=== PATIENT | male | born 1940 | race Caucasian/White ===

== ENCOUNTER 2018-04-29 10:15 | Observation (INO) | payer MEDICARE ==
[~2018-04-29] VITALS: Ht 177.8 cm; Wt 95.0 kg
[~2018-04-29 10:15] MED LIST: ALPR-624 PO; ASPI-1009 PO; CHOL100012 PO; CITA-278 PO; CLOP75TA35 PO; COR3.125T PO; CYAN1TAB41 PO; FIOCOC; HYDR-4353 PO; NITR0.4T48 SL; OMEG1CAP PO; RANO500T2 PO; ROSU20TA PO; [UNRECOGNIZED DRUG - CODE] PO
[2018-04-29 11:06] LABS: BASOPHILS # (AUTO) 0.1 X10'3 (0-0.2); BASOPHILS % (AUTO) 0.6 % (0-1); EOSINOPHILS # (AUTO) 0.1 X10'3 (0-0.9); EOSINOPHILS % (AUTO) 0.7 % (0-6); HEMATOCRIT 40.6 % (42.0-52.0); HEMOGLOBIN 13.9 g/dl (14.0-17.9); LYMPHOCYTES # (AUTO) 0.9 X10'3 (1.1-4.8); MEAN CORPUSCULAR HEMOGLOBIN 33.1 PG (27.0-31.0); MEAN CORPUSCULAR HGB CONC 34.2 % (33.0-36.5); MEAN CORPUSCULAR VOLUME 96.7 FL (78-98); MEAN PLATELET VOLUME 8.1 FL (7.4-10.4); MONOCYTES # (AUTO) 0.4 X10'3 (0-0.9); MONOCYTES % (AUTO) 4.9 % (2-12); NEUTROPHILS # (AUTO) 6.9 X10'3 (1.8-7.7); NEUTROPHILS % (AUTO) 82.8 % (42-75); PLATELET COUNT 202 X10'3 (140-440); RED CELL DISTRIBUTION WIDTH 12.9 % (11.5-14.5); WHITE BLOOD COUNT 8.3 X10'3 (4.5-11.0)
[2018-04-29 11:23] LABS: ALANINE AMINOTRANSFERASE 21 U/L (12-78); ALBUMIN 3.6 G/DL (3.4-5.0); ALBUMIN/GLOBULIN RATIO 1.2 (1.1-1.5); ALKALINE PHOSPHATASE 86 IU/L (46-116); ANION GAP 8 (8-16); ASPARTATE AMINO TRANSFERASE 22 U/L (10-37); BILIRUBIN,TOTAL 0.5 MG/DL (0.1-1.0); BLOOD UREA NITROGEN 13 MG/DL (7-18); BUN/CREATININE RATIO 13.1 (5.4-32.0); CALCIUM 8.6 MG/DL (8.5-10.1); CHLORIDE 106 MMOL/L (99-107); CREATININE 0.99 MG/DL (0.60-1.10); GLUCOSE 106 MG/DL (70-104); POTASSIUM 3.7 MMOL/L (3.5-5.1); SODIUM 140 MMOL/L (135-145); TOTAL CARBON DIOXIDE 25.6 MMOL/L (24-32); TOTAL PROTEIN 6.7 G/DL (6.4-8.2); eGFR 73 ML/MIN
[2018-04-29 11:41] LABS: INR 1.1 INR; PARTIAL THROMBOPLASTIN TIME 27 SECONDS (22-32); PROTHROMBIN TIME 10.9 SECONDS (9.0-12.0)
[2018-04-29] MEDS ORDERED: acetaminophen 325mg tablet PO PRN ×2 (12:40)
[2018-04-29] MEDS ORDERED: magnesium hydroxide 30ml (MOM) UD suspension PO PRN (12:40)
[2018-04-29] MEDS ORDERED: ondansetron/PF 4mg/2ml inj IV PRN (12:40)
[2018-04-29] MEDS ORDERED: HYDROcodone/acetaminophen 5mg/325mg tablet PO PRN (12:40)
[2018-04-29] MEDS ORDERED: mag hydrox/Alum hydrox/simeth 30ml oral suspension PO PRN (12:40)
[2018-04-29] MEDS ORDERED: HYDROcodone/acetaminophen 10/325mg tab PO PRN (12:40)
[2018-04-29] MEDS ORDERED: CLOP75TA15 PO (13:00)
[2018-04-29] MEDS ORDERED: CARV6.253 PO (13:00)
[2018-04-29] MEDS ORDERED: METO25TA6 PO (13:02)
[2018-04-29] MEDS ORDERED: ALPRAZolam 0.5mg tablet PO PRN (13:20)
[2018-04-29] MEDS ORDERED: ISOS30TA6 PO (14:24)
[2018-04-29] MEDS ORDERED: OMEP40CA37 PO (14:24)
[2018-04-29] MEDS ORDERED: GABA300T25 PO (14:36)
[2018-04-29] MEDS ORDERED: NIAC500T7 PO (14:36)
[2018-04-29] MEDS ORDERED: MULT1CAP44 PO (14:36)
[2018-04-29] MEDS ORDERED: MAGN400C PO (14:36)
[2018-04-29] MEDS ORDERED: ACET-2119 PO (14:36)
[2018-04-29] MEDS ORDERED: TEMA15CA5 PO (14:36)
[2018-04-29] MEDS ORDERED: LACT10SO PO (14:36)
[2018-04-29] MEDS ORDERED: EVOL140S SUBCUT (14:36)
[2018-04-29] MEDS ORDERED: HYDR-4383 PO (14:45)
[2018-04-29] MEDS ORDERED: ROPI2TAB4 PO (14:45)
[2018-04-29 17:30] VITALS: BP 109/64
[2018-04-29] MEDS: ranolazine 500mg SR tablet (Q12H) PO SCH (19:49)
[2018-04-29] MEDS: ROPINIRole 1mg tablet PO PRN (19:55)
[2018-04-29] MEDS: metoprolol tartrate 25mg tablet PO SCH (19:57)
[2018-04-29] MEDS ORDERED: omega-3 acid ethyl esters 1GM capsule PO SCH (20:00)
[2018-04-29] MEDS ORDERED: temazepam 15mg capsule PO PRN (21:00)
[2018-04-29 23:00] VITALS: BP 131/56
[2018-04-30] VITALS (12 sets, daily range): BP systolic 135–183; BP diastolic 58–108
[2018-04-30 05:06] LABS: BASOPHILS % (AUTO) 0.5 % (0-1); EOSINOPHILS # (AUTO) 0.3 X10'3 (0-0.9); HEMATOCRIT 39.4 % (42.0-52.0); HEMOGLOBIN 13.3 g/dl (14.0-17.9); LYMPHOCYTES # (AUTO) 1.8 X10'3 (1.1-4.8); LYMPHOCYTES % (AUTO) 31.2 % (21-51); MEAN CORPUSCULAR HEMOGLOBIN 32.9 PG (27.0-31.0); MEAN CORPUSCULAR HGB CONC 33.7 % (33.0-36.5); MEAN CORPUSCULAR VOLUME 97.5 FL (78-98); MEAN PLATELET VOLUME 8.4 FL (7.4-10.4); MONOCYTES # (AUTO) 0.6 X10'3 (0-0.9); MONOCYTES % (AUTO) 9.5 % (2-12); NEUTROPHILS # (AUTO) 3.1 X10'3 (1.8-7.7); NEUTROPHILS % (AUTO) 52.8 % (42-75); PLATELET COUNT 164 X10'3 (140-440); RED BLOOD COUNT 4.05 X10'6 (4.70-6.10); RED CELL DISTRIBUTION WIDTH 13.5 % (11.5-14.5); WHITE BLOOD COUNT 5.8 X10'3 (4.5-11.0)
[2018-04-30 05:29] LABS: ALBUMIN 3.1 G/DL (3.4-5.0); ANION GAP 8 (8-16); BLOOD UREA NITROGEN 16 MG/DL (7-18); BUN/CREATININE RATIO 19.3 (5.4-32.0); CALCIUM 8.5 MG/DL (8.5-10.1); CHLORIDE 107 MMOL/L (99-107); CHOL/HDL RATIO 2.4 (0.00-4.99); CHOLESTEROL 88 MG/DL (0-200); CREATININE 0.83 MG/DL (0.60-1.10); GLUCOSE 103 MG/DL (70-104); HDL CHOLESTEROL 37 MG/DL (35-60); LDL CHOLESTEROL 33 MG/DL (50-100); POTASSIUM 3.5 MMOL/L (3.5-5.1); SODIUM 142 MMOL/L (135-145); TOTAL CARBON DIOXIDE 27.1 MMOL/L (24-32); TRIGLYCERIDES 207 MG/DL (20-135); eGFR 90 ML/MIN
[2018-04-30] MEDS ORDERED: normal saline 1000ml 1,000 ML IV SCH (07:00)
[2018-04-30] MEDS: ranolazine 500mg SR tablet (Q12H) PO SCH ×2 (07:12→20:07)
[2018-04-30] MEDS: aspirin 81mg tablet.DR PO SCH (07:12)
[2018-04-30] MEDS: metoprolol tartrate 25mg tablet PO SCH ×2 (07:12→22:55)
[2018-04-30] MEDS: ROPINIRole 1mg tablet PO PRN ×4 (07:12→22:43)
[2018-04-30] MEDS: citalopram 20mg tablet PO SCH (07:12)
[2018-04-30] MEDS: clopidogrel 75mg tablet PO SCH (07:15)
[2018-04-30] MEDS ORDERED: midazolam 2 mg/2 ml injection ONE ×2 (07:31→08:31)
[2018-04-30] MEDS ORDERED: fentaNYL/PF 50MCG/1 ML 2ML syringe ONE (07:32)
[2018-04-30] MEDS ORDERED: iohexol 350 MG/ML 50ML vial IV ONE (07:32)
[2018-04-30] MEDS ORDERED: LIDOcaine 1% (10mg/ml)w/preservative injection 20ml MDV ONE (07:32)
[2018-04-30] MEDS ORDERED: iohexol 350MG/ML 100ml bottle IV ONE (07:32)
[2018-04-30] MEDS ORDERED: proCHLORperazine 10 MG/2 ml inj ONE (07:52)
[2018-04-30] MEDS ORDERED: carvedilol 6.25mg tablet PO SCH (08:00)
[2018-04-30] MEDS ORDERED: vitamin D (cholecalciferol) 1,000 unit tablet PO SCH (08:00)
[2018-04-30] MEDS ORDERED: FOLIC ACID PO SCH (08:00)
[2018-04-30] MEDS ORDERED: CYANOCOBALAMIN PO SCH (08:00)
[2018-04-30] MEDS ORDERED: non-formulary drug (Rosuvastatin Calcium* (Crestor*) 20 MG) PO SCH (08:00)
[2018-04-30] MEDS ORDERED: adenosine 90 MG/30ml kit =/or below 120kg Cath Lab IV ONE (08:24)
[2018-04-30] MEDS ORDERED: heparin 1,000unit/ml 10ml vial 10 ML ONE (08:40)
[2018-04-30] MEDS ORDERED: clopidogrel 300mg tablet ONE (08:46)
[2018-04-30] MEDS: nitroGLYCERIN 0.4mg SUBLingual tab SL PRN ×2 (09:42→09:55)
[2018-04-30] MEDS ORDERED: cloNIDine 0.1 mg tablet PO ONE (09:55)
[2018-04-30] MEDS ORDERED: pneumococcal 23-VAL P-sac vacc 25 mcg/0.5ml vial IMVAC ONE (10:00)
[2018-04-30] MEDS ORDERED: normal saline 1000ml 1,000 ML IV ONE (11:40)
[2018-04-30 13:34] LABS: CHOLESTEROL 107 MG/DL (0-200); CREATINE KINASE 337 U/L (39-308); HDL CHOLESTEROL 53 MG/DL (35-60); LDL CHOLESTEROL 43 MG/DL (50-100); TRIGLYCERIDES 139 MG/DL (20-135)
[2018-04-30] MEDS ORDERED: EVOLOCUMAB 140 MG SQ SCH (15:00)
[2018-04-30] MEDS ORDERED: furosemide 20 MG/2 ML vial IV ONE (19:50)
[2018-04-30] MEDS ORDERED: magnesium oxide 400mg tablet PO SCH (21:00)
[2018-04-30] MEDS ORDERED: LACTULOSE PO SCH (21:00)
[2018-04-30] MEDS ORDERED: non-formulary drug (Magnesium Oxide (Magnesium) 1 CAP) PO SCH (21:00)
[2018-04-30] MEDS ORDERED: lactulose 20gm/30ml cup PO SCH (21:00)
[2018-05-01] MEDS: ROPINIRole 1mg tablet PO PRN ×3 (00:59→01:48)
[2018-05-01 03:00] VITALS: BP 111/49
[2018-05-01 06:03] LABS: ALBUMIN 3.3 G/DL (3.4-5.0); ANION GAP 9 (8-16); BLOOD UREA NITROGEN 11 MG/DL (7-18); BUN/CREATININE RATIO 12.9 (5.4-32.0); CALCIUM 8.8 MG/DL (8.5-10.1); CHLORIDE 105 MMOL/L (99-107); CREATININE 0.85 MG/DL (0.60-1.10); GLUCOSE 101 MG/DL (70-104); POTASSIUM 3.4 MMOL/L (3.5-5.1); SODIUM 141 MMOL/L (135-145); TOTAL CARBON DIOXIDE 27.3 MMOL/L (24-32); eGFR 88 ML/MIN
[2018-05-01 06:04] LABS: BASOPHILS % (AUTO) 0.2 % (0-1); EOSINOPHILS % (AUTO) 0.4 % (0-6); HEMATOCRIT 42.4 % (42.0-52.0); HEMOGLOBIN 14.5 g/dl (14.0-17.9); LYMPHOCYTES # (AUTO) 1.1 X10'3 (1.1-4.8); LYMPHOCYTES % (AUTO) 8.8 % (21-51); MEAN CORPUSCULAR HEMOGLOBIN 32.8 PG (27.0-31.0); MEAN CORPUSCULAR HGB CONC 34.2 % (33.0-36.5); MEAN CORPUSCULAR VOLUME 95.8 FL (78-98); MEAN PLATELET VOLUME 8.7 FL (7.4-10.4); MONOCYTES # (AUTO) 0.7 X10'3 (0-0.9); MONOCYTES % (AUTO) 5.6 % (2-12); NEUTROPHILS # (AUTO) 10.1 X10'3 (1.8-7.7); PLATELET COUNT 165 X10'3 (140-440); RED BLOOD COUNT 4.43 X10'6 (4.70-6.10); RED CELL DISTRIBUTION WIDTH 13.3 % (11.5-14.5); WHITE BLOOD COUNT 11.9 X10'3 (4.5-11.0)
[2018-05-01] MEDS ORDERED: pantoprazole 40mg Tablet.DR PO SCH (07:30)
[2018-05-01 07:37] VITALS: BP 128/51
[2018-05-01] MEDS ORDERED: magnesium 4gm in 100ml NS 100 ML IV PRN (07:40)
[2018-05-01] MEDS ORDERED: magnesium Cl slow-release 64mg tablet PO PRN (07:40)
[2018-05-01] MEDS ORDERED: potassium Cl 40MEQ/NS 500ml 500 ML IV PRN ×2 (07:40)
[2018-05-01] MEDS ORDERED: potassium Cl 20 mEq SR tablet PO PRN (07:40)
[2018-05-01] MEDS: metoprolol tartrate 25mg tablet PO SCH (07:50)
[2018-05-01] MEDS: aspirin 81mg tablet.DR PO SCH (07:50)
[2018-05-01] MEDS: ranolazine 500mg SR tablet (Q12H) PO SCH (07:50)
[2018-05-01] MEDS: citalopram 20mg tablet PO SCH (07:50)
[2018-05-01] MEDS: clopidogrel 75mg tablet PO SCH (07:50)
[2018-05-01] MEDS: potassium Cl 20 mEq SR tablet PO PRN ×2 (07:51→12:44)
[2018-05-01] MEDS ORDERED: isosorbide mononitrate 30mg tab.SR.24H PO SCH (08:00)
[2018-05-01] MEDS ORDERED: gabapentin 300mg capsule PO SCH (08:00)
[2018-05-01] MEDS ORDERED: OMEPRAZOLE PO SCH (08:00)
[2018-05-01 12:22] VITALS: BP 93/55
[2018-05-01] MEDS ORDERED: TYPE IN GENERIC & BRAND NAME OF PATIENT MED STRENGTH & FORM SQ SCH (12:30)
[2018-05-01] MEDS ORDERED: EVOLOCUMAB 140 MG SQ SCH (12:30)
== END 2018-05-01 15:20 | disposition home or self-care (01) ==
LOC: ER 10:15 → ED HOLD 12:37 → EDBEDREQ 16:35 → PCU 3S 17:25
PROVIDERS: ADMIT Hospitalist; ATTEND Hospitalist
DX: I25.10 Atherosclerotic heart disease of native coronary artery without angina pectoris (principal); G25.81 Restless legs syndrome; M19.90 Unspecified osteoarthritis, unspecified site; G62.9 Polyneuropathy, unspecified; J81.1 Chronic pulmonary edema; J98.11 Atelectasis; Z87.891 Personal history of nicotine dependence; Z95.5 Presence of coronary angioplasty implant and graft; Z96.612 Presence of left artificial shoulder joint; Z96.652 Presence of left artificial knee joint; Z23 Encounter for immunization
CPT/HCPCS: 36415; 71045; 76700; 80048; 80053; 80061; 82550; 83735; 84484; 85025; 85610; 85730; 87070; 90732; 93005; 93458; 96372; 96374; 99285; A6257; C1769; C1874; C9600; G0009; G0378; J0153; J0780; J1644; J1940; J2001; J2250; J3010; J7030; Q9967; 90471; 99152; 99153; A4620; C1760; C1894

== ENCOUNTER 2019-08-25 11:01 | Day surgery (SDC) | payer MEDICARE ==
[2019-08-25] VITALS (8 sets, daily range): BP systolic 134–142; BP diastolic 71–86
[~2019-08-25] VITALS: Ht 170.2 cm; Wt 87.1 kg
[~2019-08-25 11:01] MED LIST changes: +ACET-2119 PO; -ALPR-624 PO; -ASPI-1009 PO; +BUSP7.5T4 PO; -CHOL100012 PO; -CITA-278 PO; +CLOP75TA15 PO; -CLOP75TA35 PO; -COR3.125T PO; -CYAN1TAB41 PO; +DOCUMENT DATE & TIME OF BETA-BLOCKER PO ONE; -FIOCOC; -HYDR-4353 PO; +HYDR-4383 PO; +ISOS30TA6 PO; +MELA5TAB2 SL; +METO25TA6 PO; +MULT1CAP44 PO; +NIAC500T7 PO; -OMEG1CAP PO; +PANT-47 PO; -RANO500T2 PO; +ROPI2TAB4 PO; -ROSU20TA PO; +ROSU40TA PO; +TEMA15CA PO; -[UNRECOGNIZED DRUG - CODE] PO; +clindamycin-Cleocin 900mg/D5W 50 ML IV ONE; +famotidine 20mg tablet PO ONE; +ringers solution, lacted 1,000 ML IV SCH
[2019-08-25 12:35] LABS: BASOPHILS % (AUTO) 0.6 % (0-1); EOSINOPHILS # (AUTO) 0.1 X10'3 (0-0.9); EOSINOPHILS % (AUTO) 1.9 % (0-6); HEMATOCRIT 47.8 % (42.0-52.0); HEMOGLOBIN 16.5 g/dl (14.0-17.9); LYMPHOCYTES # (AUTO) 1.3 X10'3 (1.1-4.8); LYMPHOCYTES % (AUTO) 20.3 % (21-51); MEAN CORPUSCULAR HEMOGLOBIN 31.8 PG (27.0-31.0); MEAN CORPUSCULAR HGB CONC 34.4 g/dL (33.0-36.5); MEAN CORPUSCULAR VOLUME 92.4 FL (78-98); MONOCYTES # (AUTO) 0.6 X10'3 (0-0.9); MONOCYTES % (AUTO) 8.6 % (2-12); NEUTROPHILS # (AUTO) 4.4 X10'3 (1.8-7.7); NEUTROPHILS % (AUTO) 68.6 % (42-75); PLATELET COUNT 182 X10'3 (140-440); RED BLOOD COUNT 5.18 X10'6 (4.70-6.10); RED CELL DISTRIBUTION WIDTH 13.5 % (11.5-14.5); WHITE BLOOD COUNT 6.4 X10'3 (4.5-11.0)
[2019-08-25 12:43] LABS: ALANINE AMINOTRANSFERASE 22 U/L (12-78); ALBUMIN 4.3 G/DL (3.4-5.0); ALBUMIN/GLOBULIN RATIO 1.1 (1.1-1.5); ALKALINE PHOSPHATASE 96 IU/L (46-116); ANION GAP 9 (8-16); ASPARTATE AMINO TRANSFERASE 25 U/L (10-37); BILIRUBIN,TOTAL 0.6 MG/DL (0.1-1.0); BLOOD UREA NITROGEN 18 MG/DL (7-18); BUN/CREATININE RATIO 14.5 (5.4-32.0); CALCIUM 9.6 MG/DL (8.5-10.1); CHLORIDE 106 MMOL/L (99-107); CREATININE 1.24 MG/DL (0.60-1.10); GLUCOSE 97 MG/DL (70-104); SODIUM 141 MMOL/L (135-145); TOTAL CARBON DIOXIDE 25.6 MMOL/L (24-32); TOTAL PROTEIN 8.1 G/DL (6.4-8.2); eGFR 57 ML/MIN
[2019-08-25 12:45] LABS: POTASSIUM 4.3 MMOL/L (3.5-5.1)
[2019-08-25] MEDS ORDERED: bacitracin 15gm ointment TP ONE (16:07)
[2019-08-25] MEDS ORDERED: fentaNYL/PF 50MCG/1 ML 2ML syringe IV PRN ×2 (16:10)
[2019-08-25] MEDS ORDERED: morphine 4 MG/ML inj SYRINge IV PRN (16:10)
[2019-08-25] MEDS ORDERED: ringers solution, lacted 1,000 ML IV SCH (16:10)
[2019-08-25] MEDS ORDERED: morphine 2 MG/ML inj. syringe IV PRN (16:10)
[2019-08-25] MEDS ORDERED: labetalol 20mg/4ml (5mg/ml) syringe IV PRN (16:10)
[2019-08-25] MEDS ORDERED: ondansetron/PF 4mg/2ml inj IV PRN (16:10)
[2019-08-25] MEDS ORDERED: hydrALAZINE 20mg/ml inj. IV PRN (16:10)
[2019-08-25] MEDS ORDERED: Dakins solution (1/4 strength) 473ml solution TP ONE (16:10)
[2019-08-25] MEDS ORDERED: midazolam 2 mg/2 ml injection ONE (16:14)
[2019-08-25] MEDS ORDERED: fentaNYL/PF 50MCG/1 ML 2ML syringe ONE (16:14)
[2019-08-25] MEDS ORDERED: sevoflurane 250ml liquid IH ONE (16:21)
[2019-08-25] MEDS ORDERED: ondansetron/PF 4mg/2ml inj ONE (16:32)
[2019-08-25] MEDS ORDERED: propofol inj 20 ML IV ONE (16:32)
[2019-08-25] MEDS ORDERED: LIDOcaine 2% (20mg/ml) 5ml vial ONE (16:32)
[2019-08-25] MEDS ORDERED: dexamethasone sod phosphate 4mg/ml inj. ONE (16:39)
--- NOTE | 2019-08-25 17:00 | NUR ---
Received from OR via BED , accompanied by Anesthesiologist DR GALLO and report given by Anesthesiolgist. PATIENT WAKING UP, DENIES PAIN, V/S WNL, NEUROVASCULAR CHECKS INTACT, 20G PIV LUE, SCD ON, DRESSING TO ABDOMEN CDI.
--- NOTE | 2019-08-25 17:50 | NUR ---
PATIENT A&OX4, STATES PAIN CONTROLLED NOW, V/S WNL, NEUROVASCULAR CHECKS INTACT, 20G PIV LUE D/C, SCD OFF, DRESSING TO ABDOMEN CDI. I HAVE REVIEWED D/C INSTRUCTIONS WITH PATIENT AND FAMILY AND THEY HAVE VERBALIZED UNDERSTANDING. PATIENT D/C HOME WITH ALL BELONGINGS AND FAMILY GAVE TRANSPORT HOME.
== END 2019-08-25 17:50 | disposition home or self-care (01) ==
LOC: PAS 11:01
PROVIDERS: ATTEND Surgery
DX: L02.211 Cutaneous abscess of abdominal wall (principal); F32.9 Major depressive disorder, single episode, unspecified; G25.81 Restless legs syndrome; I25.10 Atherosclerotic heart disease of native coronary artery without angina pectoris; I11.9 Hypertensive heart disease without heart failure; I25.2 Old myocardial infarction; Z88.0 Allergy status to penicillin; Z79.899 Other long term (current) drug therapy; Z95.5 Presence of coronary angioplasty implant and graft; Z98.1 Arthrodesis status; Z96.619 Presence of unspecified artificial shoulder joint; Z87.891 Personal history of nicotine dependence; Z80.3 Family history of malignant neoplasm of breast; Z82.49 Family history of ischemic heart disease and other diseases of the circulatory system; Z96.659 Presence of unspecified artificial knee joint
CPT/HCPCS: 22902; 36415; 80053; 82948; 85025; 87070; 87075; 87077; 87186; 93005; J1100; J2001; J2250; J2270; J2405; J2704; J3010; J7120; A4618; A7000; J3490

== ENCOUNTER 2021-10-05 11:29 | Day surgery (SDC) | payer MEDICARE ==
[~2021-10-05] VITALS: Ht 177.8 cm; Wt 98.2 kg
[2021-10-05] VITALS (9 sets, daily range): BP systolic 97–151; BP diastolic 66–79
[~2021-10-05 11:29] MED LIST changes: -BUSP7.5T4 PO; +BUSP7.5T5 PO; -DOCUMENT DATE & TIME OF BETA-BLOCKER PO ONE; -ISOS30TA6 PO; +ISOS30TA84 PO; +LOP25T PO; -METO25TA6 PO; +NIAC500T44 PO; -NIAC500T7 PO; -clindamycin-Cleocin 900mg/D5W 50 ML IV ONE; -famotidine 20mg tablet PO ONE; -ringers solution, lacted 1,000 ML IV SCH
[2021-10-05] MEDS ORDERED: diphenhydrAMINE 25mg capsule PO PRN (11:50)
[2021-10-05] MEDS ORDERED: normal saline 1,000 ML IV SCH (11:50)
[2021-10-05 12:31] LABS: BASOPHILS % (AUTO) 0.6 % (0-1); EOSINOPHILS # (AUTO) 0.2 X10'3 (0-0.9); HEMATOCRIT 43.4 % (42.0-52.0); HEMOGLOBIN 14.5 g/dl (14.0-17.9); LYMPHOCYTES # (AUTO) 0.9 X10'3 (1.1-4.8); LYMPHOCYTES % (AUTO) 17.4 % (21-51); MEAN CORPUSCULAR HGB CONC 33.5 g/dL (33.0-36.5); MEAN CORPUSCULAR VOLUME 92.6 FL (78-98); MEAN PLATELET VOLUME 8.2 FL (7.4-10.4); MONOCYTES # (AUTO) 0.4 X10'3 (0-0.9); MONOCYTES % (AUTO) 7.8 % (2-12); NEUTROPHILS # (AUTO) 3.9 X10'3 (1.8-7.7); NEUTROPHILS % (AUTO) 71.2 % (42-75); PLATELET COUNT 215 X10'3 (140-440); RED BLOOD COUNT 4.69 X10'6 (4.70-6.10); RED CELL DISTRIBUTION WIDTH 13.8 % (11.5-14.5); WHITE BLOOD COUNT 5.4 X10'3 (4.5-11.0)
[2021-10-05] MEDS ORDERED: CELE-85 PO (12:31)
[2021-10-05] MEDS ORDERED: EZET10TA48 PO (12:31)
[2021-10-05] MEDS ORDERED: BUSP15TA3 PO (12:31)
[2021-10-05] MEDS ORDERED: TRAZ-251 PO (12:31)
[2021-10-05 12:39] LABS: ALBUMIN 4.2 G/DL (3.4-5.0); ANION GAP 10 (8-16); BLOOD UREA NITROGEN 16 MG/DL (7-18); CALCIUM 9.1 MG/DL (8.5-10.1); CHLORIDE 104 MMOL/L (99-107); CREATININE 0.94 MG/DL (0.60-1.10); GLUCOSE 90 MG/DL (70-104); MAGNESIUM 2.3 MG/DL (1.5-2.4); POTASSIUM 3.9 MMOL/L (3.5-5.1); SODIUM 141 MMOL/L (135-145); TOTAL CARBON DIOXIDE 27.4 MMOL/L (24-32); eGFR 77 ML/MIN
[2021-10-05] MEDS ORDERED: verapamil 2.5 mg/ml inj IV ONE (13:38)
[2021-10-05] MEDS ORDERED: LIDOcaine 1% (10mg/ml)w/preservative inj. 20ml MDV ONE (13:38)
[2021-10-05] MEDS ORDERED: midazolam 1 mg/ML 2ml injection ONE ×3 (13:38→14:41)
[2021-10-05] MEDS ORDERED: fentaNYL/PF 50MCG/1 ML 2ML syringe ONE (13:38)
[2021-10-05] MEDS ORDERED: heparin 1,000 UNITS/NS 500ml 500 ML ONE ×2 (13:39)
[2021-10-05] MEDS ORDERED: nitroGLYCERIN-Tridil 50MG/D5W 250 ML IV ONE (13:39)
[2021-10-05] MEDS ORDERED: iohexol 350 MG/ML 50ML vial IV ONE (13:39)
[2021-10-05] MEDS ORDERED: heparin 1,000unit/ml 10ml vial 10 ML ONE (13:39)
== END 2021-10-05 18:40 | disposition home or self-care (01) ==
LOC: SSTAY O 11:29
PROVIDERS: ATTEND Internal Medicine Cardiovascular Disease
DX: R07.89 Other chest pain (principal); I25.119 Atherosclerotic heart disease of native coronary artery with unspecified angina pectoris; E78.5 Hyperlipidemia, unspecified; I10 Essential (primary) hypertension; E83.119 Hemochromatosis, unspecified; M19.90 Unspecified osteoarthritis, unspecified site; G25.81 Restless legs syndrome; F32.A Depression, unspecified; E03.9 Hypothyroidism, unspecified; Z95.5 Presence of coronary angioplasty implant and graft; Z79.899 Other long term (current) drug therapy; Z79.01 Long term (current) use of anticoagulants; Z96.653 Presence of artificial knee joint, bilateral; Z98.890 Other specified postprocedural states; Z87.891 Personal history of nicotine dependence; Z72.89 Other problems related to lifestyle; Z88.0 Allergy status to penicillin; Z83.3 Family history of diabetes mellitus; Z82.49 Family history of ischemic heart disease and other diseases of the circulatory system; Z80.3 Family history of malignant neoplasm of breast
CPT/HCPCS: 36415; 80048; 83735; 85025; 85610; 93458; 99152; C1769; C1894; J1644; J2250; J3010; J3490; J7030; Q0163; Q9967; 99153; A4620; A6258

== ENCOUNTER 2022-09-17 16:13 | Observation (INO) | payer MEDICARE ==
[~2022-09-17] VITALS: Ht 165.1 cm; Wt 86.4 kg
[~2022-09-17 16:13] MED LIST changes: -ACET-2119 PO; +BUSP15TA3 PO; -BUSP7.5T5 PO; +CELE-85 PO; +EZET10TA48 PO; -ISOS30TA84 PO; -ROPI2TAB4 PO; -TEMA15CA PO; +TRAZ-251 PO
[2022-09-17 17:08] LABS: BASOPHILS % (AUTO) 0.6 % (0-1); EOSINOPHILS # (AUTO) 0.1 X10'3 (0-0.9); EOSINOPHILS % (AUTO) 2.5 % (0-6); HEMATOCRIT 39.6 % (42.0-52.0); HEMOGLOBIN 13.6 g/dl (14.0-17.9); LYMPHOCYTES # (AUTO) 1.1 X10'3 (1.1-4.8); LYMPHOCYTES % (AUTO) 19.2 % (21-51); MEAN CORPUSCULAR HEMOGLOBIN 32.5 PG (27.0-31.0); MEAN CORPUSCULAR HGB CONC 34.4 g/dL (33.0-36.5); MEAN CORPUSCULAR VOLUME 94.6 FL (78-98); MEAN PLATELET VOLUME 8.6 FL (7.4-10.4); MONOCYTES # (AUTO) 0.6 X10'3 (0-0.9); MONOCYTES % (AUTO) 10.8 % (2-12); NEUTROPHILS # (AUTO) 3.8 X10'3 (1.8-7.7); NEUTROPHILS % (AUTO) 66.9 % (42-75); PLATELET COUNT 133 X10'3 (140-440); RED BLOOD COUNT 4.18 X10'6 (4.70-6.10); RED CELL DISTRIBUTION WIDTH 13.9 % (11.5-14.5); WHITE BLOOD COUNT 5.6 X10'3 (4.5-11.0)
[2022-09-17 17:27] LABS: ALANINE AMINOTRANSFERASE 20 U/L (12-78); ALBUMIN 3.5 G/DL (3.4-5.0); ALBUMIN/GLOBULIN RATIO 1.2 (1.1-1.5); ALKALINE PHOSPHATASE 59 IU/L (46-116); ANION GAP 5 (8-16); ASPARTATE AMINO TRANSFERASE 23 U/L (10-37); BILIRUBIN,TOTAL 0.4 MG/DL (0.1-1.0); BLOOD UREA NITROGEN 15 MG/DL (7-18); BUN/CREATININE RATIO 15.2 (10.0-20.0); CALCIUM 8.8 MG/DL (8.5-10.1); CHLORIDE 107 MMOL/L (99-107); CREATININE 0.99 MG/DL (0.60-1.10); GLUCOSE 90 MG/DL (70-104); POTASSIUM 4.1 MMOL/L (3.5-5.1); SODIUM 143 MMOL/L (135-145); TOTAL CARBON DIOXIDE 31.4 MMOL/L (24-32); TOTAL PROTEIN 6.5 G/DL (6.4-8.2); eGFR 73 ML/MIN
[2022-09-17] MEDS ORDERED: magnesium 4gm in 100ml NS 100 ML IV PRN (19:20)
[2022-09-17] MEDS ORDERED: potassium Cl 40MEQ/1/2NS 520ml 520 ML IV PRN (19:20)
[2022-09-17] MEDS ORDERED: ondansetron/PF 4mg/2ml inj IV PRN (19:20)
[2022-09-17] MEDS ORDERED: morphine 2 MG/ML inj. syringe IV PRN (19:20)
[2022-09-17] MEDS ORDERED: magnesium Cl slow-release 64mg tablet PO PRN (19:20)
[2022-09-17] MEDS ORDERED: PERFLUTREN PROTEIN-A MICROSPHR (Optison) 0.22 MG/ML 3ML VIAL IV ONE (19:20)
[2022-09-17] MEDS ORDERED: potassium Cl 20 mEq SR tablet PO PRN ×2 (19:20)
[2022-09-17] MEDS: K and/or MAG REPLACEMENT MC SCH (19:50)
[2022-09-17] MEDS ORDERED: TRAZ-256 PO (20:24)
[2022-09-17] MEDS ORDERED: EZET10TA6 PO (20:24)
[2022-09-17] MEDS ORDERED: DONE10TA44 PO (20:24)
[2022-09-17] MEDS ORDERED: ESCI20TA PO (20:24)
[2022-09-17] MEDS ORDERED: CYCL-1 PO (20:24)
[2022-09-17] MEDS ORDERED: MELA1TAB52 PO (20:24)
[2022-09-17] MEDS ORDERED: CELE200C PO (20:24)
[2022-09-17] MEDS ORDERED: NITR0.4T51 SL (20:43)
--- NOTE | 2022-09-17 23:25 | NUR ---
Received report from Georgina in ED and had the opportunity to ask questions and assume patient care.
[2022-09-18] VITALS (10 sets, daily range): BP systolic 104–157; BP diastolic 45–78
[2022-09-18] MEDS ORDERED: nitroGLYCERIN 0.4mg SUBLingual tab SL PRN (05:20)
[2022-09-18] MEDS ORDERED: aminophylline 250mg/10ml inj. IV PRN (05:20)
[2022-09-18] MEDS ORDERED: metoprolol tartrate 1mg/ml inj IV PRN (05:20)
[2022-09-18] MEDS ORDERED: regadenoson 0.4mg/5ml syringe IV PRN (05:20)
--- NOTE | 2022-09-18 06:17 | NUR ---
Patient in room [facility]. I have received report from ANETA Moore and had the opportunity to ask questions and assume patient care.
--- NOTE | 2022-09-18 06:19 | NUR ---
Problems reprioritized. Patient report given, questions answered & plan of care reviewed with Mar.
[2022-09-18 06:44] LABS: BASOPHILS % (AUTO) 0.9 % (0-1); EOSINOPHILS # (AUTO) 0.3 X10'3 (0-0.9); EOSINOPHILS % (AUTO) 5.5 % (0-6); HEMATOCRIT 39.9 % (42.0-52.0); HEMOGLOBIN 13.6 g/dl (14.0-17.9); LYMPHOCYTES # (AUTO) 1.2 X10'3 (1.1-4.8); LYMPHOCYTES % (AUTO) 23.6 % (21-51); MEAN CORPUSCULAR HEMOGLOBIN 32.2 PG (27.0-31.0); MEAN CORPUSCULAR VOLUME 94.6 FL (78-98); MEAN PLATELET VOLUME 8.4 FL (7.4-10.4); MONOCYTES # (AUTO) 0.6 X10'3 (0-0.9); MONOCYTES % (AUTO) 11.5 % (2-12); NEUTROPHILS % (AUTO) 58.5 % (42-75); PLATELET COUNT 112 X10'3 (140-440); RED BLOOD COUNT 4.22 X10'6 (4.70-6.10); RED CELL DISTRIBUTION WIDTH 13.9 % (11.5-14.5); WHITE BLOOD COUNT 5.1 X10'3 (4.5-11.0)
--- NOTE | 2022-09-18 06:58 | NUR ---
PAGER ID: [phone] MESSAGE: [id number]- Yan Murphy- pt is NPO going to julian scan today. He has no IV fluids ordered. Do you want any?- Mar [id number]
[2022-09-18 06:59] LABS: ALBUMIN 3.3 G/DL (3.4-5.0); ANION GAP 7 (8-16); BLOOD UREA NITROGEN 14 MG/DL (7-18); BUN/CREATININE RATIO 18.2 (10.0-20.0); CALCIUM 8.3 MG/DL (8.5-10.1); CHLORIDE 108 MMOL/L (99-107); CREATININE 0.77 MG/DL (0.60-1.10); GLUCOSE 83 MG/DL (70-104); MAGNESIUM 1.9 MG/DL (1.5-2.4); POTASSIUM 3.6 MMOL/L (3.5-5.1); SODIUM 144 MMOL/L (135-145); eGFR > 90 ML/MIN
[2022-09-18] MEDS: K and/or MAG REPLACEMENT MC SCH (08:00)
--- NOTE | 2022-09-18 08:49 | NUR ---
patient down to stress test.
--- NOTE | 2022-09-18 10:43 | NUR ---
PAGER ID: [phone] MESSAGE: [id number]- Yan Murphy- back from stress test.- [facility] [id number]
--- NOTE | 2022-09-18 11:23 | NUR ---
Wound care in to see patient. Dr. Malik also in to see patient and aware patient's suprapubic catheter has been leaking. Dr. Malik also aware that patient and patient's spouse reports patient has a nephrology appointment on Friday. Addendum: 09/18/22 at 1404 by Mar Salcedo RN incorrect patient chart
--- NOTE | 2022-09-18 14:05 | NUR ---
Patient alert and oriented in no apparent acute distress. Denies chest pain. Educated patient and spouse discharge instructions. Patient states "this isn't my first rodeo." Patient verbalizes understanding of discharge instructions. Patient discharged with all personal belongings escorted out in wheelchair. transporting home.
== END 2022-09-18 14:05 | disposition home or self-care (01) ==
LOC: ER 16:13 → ED HOLD 19:28 → EDBEDREQSVC 21:44 → EDBEDREQ 21:44 → SUR 3N 23:55
PROVIDERS: ADMIT Internal Medicine; ATTEND Family Medicine
DX: I25.110 Atherosclerotic heart disease of native coronary artery with unstable angina pectoris (principal); I21.4 Non-ST elevation (NSTEMI) myocardial infarction; I10 Essential (primary) hypertension; E78.5 Hyperlipidemia, unspecified; K21.9 Gastro-esophageal reflux disease without esophagitis; E78.00 Pure hypercholesterolemia, unspecified; F11.20 Opioid dependence, uncomplicated; G89.29 Other chronic pain; M19.90 Unspecified osteoarthritis, unspecified site; Z79.02 Long term (current) use of antithrombotics/antiplatelets; Z95.5 Presence of coronary angioplasty implant and graft; Z96.612 Presence of left artificial shoulder joint; Z96.653 Presence of artificial knee joint, bilateral; Z88.0 Allergy status to penicillin; Z79.899 Other long term (current) drug therapy
CPT/HCPCS: 36415; 71045; 78452; 80048; 80053; 83735; 83880; 84484; 85025; 87081; 93005; 93017; 93306; 96374; 99285; A9500; G0378; J2270; J2785; 84132